=== PATIENT | female | born 2000 | race Caucasian/White ===

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

== ENCOUNTER → 2018-11-13 | Outpatient (CLI) | payer OTHER ==
[~2018-11-13] MED LIST changes: +CEPH-507 PO; +ETHI1TAB26; +POLY119P5 PO
--- NOTE | 2018-11-13 16:21 | Diagnostic Imaging Report ---
EXAMINATION: Magnetic resonance imaging of the right knee without intravenous contrast DATE: November 13, 2018. COMPARISON: None. INDICATION: 18-year-old female, fall in September 2018. Knee pain and swelling. TECHNIQUE: Multiplanar, multisequence non contrast enhanced MR imaging was accomplished. FINDINGS: MENISCI: The medial meniscus is intact. The lateral meniscus is intact. LIGAMENTS AND TENDONS: The anterior and posterior cruciate ligaments are intact. The medial collateral ligament is intact. The iliotibial band, mid third lateral capsular ligament, fibular collateral ligament, biceps femoris tendon and conjoined tendon are intact. The quadriceps tendon and patella ligament are intact. JOINT: The articular cartilage surfaces are intact. There is no knee joint effusion, prominent synovitis, or intra-articular body. BONE: There is unremarkable bone marrow signal. Specifically, negative for fracture, osteomyelitis, osteonecrosis, or marrow replacing process. BURSAE AND SOFT TISSUES: There is no Hoffman's cyst. There is a proximal tibiofibular ganglion cyst, measuring approximately 15 x 8 x 11 mm in size. There is low level edema in the peroneus longus muscle and extensor digitorum longus muscle without fatty atrophy. IMPRESSION: 1. Proximal tibiofibular ganglion cyst, measuring 15 x 8 x 11 mm in size with low level edema in the extensor digitorum longus and peroneus longus muscles. This could relate to early denervation related signal changes or possibly low-grade muscle strains. 2. Intact menisci and cruciate ligaments. Additional ligaments and tendons are intact. 3. Intact articular cartilage. No knee joint effusion. 4. No acute fracture or bone contusion. Dictated on workstation # [id number]
== END ==
LOC: RAD 12:47
PROVIDERS: ATTEND Orthopaedic Surgery
DX: M67.461 Ganglion, right knee (principal); M23.261 Derangement of other lateral meniscus due to old tear or injury, right knee; M22.41 Chondromalacia patellae, right knee
CPT/HCPCS: 73721